=== PATIENT | female | born 1935 | race African-American/Black ===

== ENCOUNTER 2022-09-09 09:52 | Inpatient (IN) | payer MEDICARE, OTHER ==
[~2022-09-09] VITALS: Ht 157.5 cm; Wt 64.4 kg
[2022-09-09] MEDS ORDERED: CARV12.545 PO (10:34)
[2022-09-09 12:10] LABS: BASOPHILS % 0.4 % (0.0-2.0); EOSINOPHILS % 3.4 % (0.0-5.0); HEMATOCRIT. 34.5 % (36.0-48.0); HEMOGLOBIN. 10.8 g/dL (12.0-16.0); LYMPHOCYTES % 35.5 % (20.0-50.0); MEAN CORPUSCULAR HEMOGLOBIN 30.6 pg (28.0-32.0); MEAN CORPUSCULAR VOLUME 98.2 fL (81.0-99.0); MONOCYTES % 10.4 % (2.0-8.0); NEUTROPHILS % 50.3 % (40.0-76.0); PLATELET 229 x1000/uL (130-400); RED BLOOD CELL COUNT 3.52 mill/uL (4.2-5.4); RED CELL DISTRIBUTION WIDTH 16.4 % (11.6-14.6)
[2022-09-09 12:22] LABS: CHLORIDE 117 mEq/L (98-107)
[2022-09-09] MEDS ORDERED: DEXTROSE 50% WATER 50ML SYRINGE IV ONE (12:30)
[2022-09-09] MEDS ORDERED: ALBUTEROL (0.083%) 2.5MG/3ML NEB HHN ONE (12:30)
[2022-09-09] MEDS ORDERED: SODIUM POLYSTYRENE SULFONATE 15 G/60 ML BOT PO ONE (12:30)
[2022-09-09] MEDS ORDERED: INSULIN REGULAR (HUMULIN R) 300UNITS/3ML VIAL IV ONE (12:30)
[2022-09-09] MEDS ORDERED: SODIUM BICARBONATE 8.4% 1 MEQ/ML 50ML SYR IV ONE (12:30)
[2022-09-09] MEDS ORDERED: IPRATROPIUM/ALBUTEROL 0.5-3(2.5)MG/3ML NEB NEB PRN (15:45)
[2022-09-09] MEDS ORDERED: MAGNESIUM/ALUMINUM HYDROXIDE/SIMETHICONE 30ML UDC PO PRN (15:45)
[2022-09-09] MEDS ORDERED: GUAIFENESIN 200MG/10ML SUGAR FREE UDC PO PRN (15:45)
[2022-09-09] MEDS ORDERED: ACETAMINOPHEN 325MG TABLET PO PRN ×2 (15:45)
[2022-09-09] MEDS ORDERED: CLONIDINE 0.1MG TABLET PO PRN (15:45)
[2022-09-09] MEDS ORDERED: ONDANSETRON HCL 4MG/2ML INJ IV PRN (15:45)
[2022-09-09] MEDS ORDERED: DOCUSATE SODIUM 100MG CAPSULE PO PRN (15:45)
[2022-09-09] MEDS ORDERED: ZOLPIDEM TARTRATE 5MG TABLET PO PRN (15:45)
[2022-09-09] MEDS ORDERED: NITROGLYCERIN 0.4MG TABLET SL SL PRN (15:45)
[2022-09-09] MEDS ORDERED: DEXTROSE 50% WATER 50ML SYRINGE IV PRN (15:45)
[2022-09-09] MEDS: BLOOD SUGAR DIAGNOSTIC STRIP TEST SCH ×2 (17:07→21:16)
[2022-09-09] MEDS: ENOXAPARIN 30MG/0.3ML SYR SUBCUT SCH (17:18)
[2022-09-09] MEDS: INSULIN LISPRO 100 UNITS/ML SUBCUT SCH ×2 (17:18→20:37)
[2022-09-09] MEDS: AMLODIPINE 10MG TABLET PO SCH (17:18)
[2022-09-09 19:00] LABS: T4 FREE 1.16 ng/dL (0.76-1.46)
[2022-09-09 19:17] LABS: VITAMIN B12 SERUM 598 pg/mL (211-911)
[2022-09-09] MEDS: ASCORBIC ACID 500 MG TABLET PO SCH (21:18)
[2022-09-09] MEDS: FUROSEMIDE 40MG/4ML VIAL IVP SCH (21:18)
[2022-09-09 23:11] LABS: CREATINE KINASE 39 IU/L (26-192)
[2022-09-09 23:51] LABS: CLARITY URINE CLEAR (CLEAR); COLOR URINE YELLOW (YELLOW); KETONES URINE NEGATIVE (NEGATIVE); LEUKOCYTE ESTERASE URINE NEGATIVE (NEGATIVE); NITRITE URINE NEGATIVE (NEGATIVE); OCCULT BLOOD URINE NEGATIVE (NEGATIVE); PROTEIN URINE NEGATIVE (NEGATIVE); SPECIFIC GRAVITY URINE 1.007 (1.005-1.030); UROBILINOGEN URINE 0.2 E.U./dL (0.2-1.0)
[2022-09-10] VITALS (9 sets, daily range): BP systolic 114–155; BP diastolic 61–93
[2022-09-10 00:12] LABS: *AMPHETAMINES SCREEN URINE NEGATIVE (NEGATIVE); *BARBITURATES SCREEN URINE NEGATIVE (NEGATIVE); *BENZODIAZEPINES SCREEN URINE NEGATIVE (NEGATIVE); *COCAINE SCREEN URINE NEGATIVE (NEGATIVE); CANNABINOID URINE SCREEN NEGATIVE (NEGATIVE); METHADONE URINE SCREEN NEGATIVE (NEGATIVE); OPIATES URINE SCREEN NEGATIVE (NEGATIVE); PHENCYCLIDINE URINE SCREEN NEGATIVE (NEGATIVE)
[2022-09-10] MEDS: BLOOD SUGAR DIAGNOSTIC STRIP TEST SCH ×4 (07:30→21:09)
[2022-09-10] MEDS: INSULIN LISPRO 100 UNITS/ML SUBCUT SCH ×4 (08:00→21:00)
[2022-09-10] MEDS ORDERED: INFLUENZA VACCINE 05/PF 0.5 ML SYRINGE IM ONE (09:00)
[2022-09-10 09:02] LABS: BASOPHILS % 0.5 % (0.0-2.0); EOSINOPHILS % 2.6 % (0.0-5.0); HEMATOCRIT. 29.6 % (36.0-48.0); HEMOGLOBIN. 9.7 g/dL (12.0-16.0); MEAN CORPUSCULAR HEMOGLOBIN 30.9 pg (28.0-32.0); MEAN CORPUSCULAR VOLUME 93.9 fL (81.0-99.0); MEAN PLATELET VOLUME 7.6 fl (7.4-10.4); MONOCYTES % 13.6 % (2.0-8.0); NEUTROPHILS % 51.3 % (40.0-76.0); PLATELET 196 x1000/uL (130-400); RED BLOOD CELL COUNT 3.15 mill/uL (4.2-5.4); RED CELL DISTRIBUTION WIDTH 15.6 % (11.6-14.6)
[2022-09-10 09:13] LABS: CHLORIDE 113 mEq/L (98-107)
[2022-09-10 09:23] LABS: CREATINE KINASE MB FRACTION 1.1 ng/mL (0.5-3.6)
[2022-09-10] MEDS ORDERED: FLUO1POW12 MC (09:52)
[2022-09-10] MEDS ORDERED: FERR325T6 PO (09:52)
[2022-09-10] MEDS ORDERED: ATOR10TA69 PO (09:52)
[2022-09-10] MEDS ORDERED: LEVO50TA8 PO (09:52)
[2022-09-10] MEDS ORDERED: ASPI-1079 PO (09:52)
[2022-09-10] MEDS ORDERED: ALLO100T PO (09:52)
[2022-09-10] MEDS ORDERED: ESCI5SOL2 PO (09:52)
[2022-09-10] MEDS ORDERED: LOSA25TA26 PO (09:52)
[2022-09-10] MEDS: FUROSEMIDE 40MG/4ML VIAL IVP SCH ×2 (10:02→21:09)
[2022-09-10] MEDS: AMLODIPINE 10MG TABLET PO SCH (10:03)
[2022-09-10] MEDS: FAMOTIDINE 20MG TABLET PO SCH (10:03)
[2022-09-10] MEDS: ASCORBIC ACID 500 MG TABLET PO SCH ×2 (10:04→21:09)
[2022-09-10] MEDS: ASPIRIN 325MG EC TABLET PO SCH (10:04)
[2022-09-10] MEDS: ZINC SULFATE 220 MG ( 50 ) CAPSULE PO SCH (10:04)
[2022-09-10] MEDS: ENOXAPARIN 30MG/0.3ML SYR SUBCUT SCH (16:19)
[2022-09-10] MEDS: DILTIAZEM HCL 30MG TABLET PO SCH (21:09)
[2022-09-11] VITALS: BP 100/59
[2022-09-11] MEDS: DILTIAZEM HCL 30MG TABLET PO SCH ×2 (03:00→08:29)
[2022-09-11 04:00] VITALS: BP 114/63
[2022-09-11 08:00] VITALS: BP 105/56
[2022-09-11] MEDS: INSULIN LISPRO 100 UNITS/ML SUBCUT SCH ×4 (08:00→21:00)
[2022-09-11] MEDS: BLOOD SUGAR DIAGNOSTIC STRIP TEST SCH ×4 (08:27→21:32)
[2022-09-11] MEDS: ZINC SULFATE 220 MG ( 50 ) CAPSULE PO SCH (08:29)
[2022-09-11] MEDS: ASCORBIC ACID 500 MG TABLET PO SCH ×2 (08:29→21:31)
[2022-09-11] MEDS: FAMOTIDINE 20MG TABLET PO SCH (08:29)
[2022-09-11] MEDS: ASPIRIN 325MG EC TABLET PO SCH (08:29)
[2022-09-11] MEDS: AMLODIPINE 10MG TABLET PO SCH (08:30)
[2022-09-11] MEDS: FUROSEMIDE 40MG/4ML VIAL IVP SCH ×2 (08:30→21:00)
[2022-09-11] MEDS ORDERED: METOPROLOL TARTRATE 50MG TABLET PO SCH (11:15)
[2022-09-11] MEDS ORDERED: METOPROLOL TARTRATE 5MG/5ML VIAL IV PRN (11:15)
[2022-09-11 12:00] VITALS: BP 118/65
[2022-09-11 16:00] VITALS: BP 108/56
[2022-09-11] MEDS: ENOXAPARIN 30MG/0.3ML SYR SUBCUT SCH (16:57)
[2022-09-11 20:00] VITALS: BP 107/57
[2022-09-11] MEDS: METOPROLOL TARTRATE 25MG TABLET PO SCH (21:00)
[2022-09-12] VITALS (7 sets, daily range): BP systolic 100–131; BP diastolic 49–65
[2022-09-12] MEDS: BLOOD SUGAR DIAGNOSTIC STRIP TEST SCH ×4 (07:30→21:23)
[2022-09-12 07:59] LABS: BASOPHILS % 0.5 % (0.0-2.0); EOSINOPHILS % 1.5 % (0.0-5.0); HEMATOCRIT. 35.2 % (36.0-48.0); LYMPHOCYTES % 38.8 % (20.0-50.0); MEAN CORPUSCULAR VOLUME 94.7 fL (81.0-99.0); MEAN PLATELET VOLUME 7.6 fl (7.4-10.4); MONOCYTES % 11.6 % (2.0-8.0); NEUTROPHILS % 47.6 % (40.0-76.0); PLATELET 226 x1000/uL (130-400); RED BLOOD CELL COUNT 3.72 mill/uL (4.2-5.4); RED CELL DISTRIBUTION WIDTH 15.6 % (11.6-14.6)
[2022-09-12] MEDS: INSULIN LISPRO 100 UNITS/ML SUBCUT SCH ×4 (08:00→21:00)
[2022-09-12 08:16] LABS: HEMOGLOBIN. 11.2 g/dL (12.0-16.0)
[2022-09-12 08:22] LABS: CHLORIDE 107 mEq/L (98-107)
[2022-09-12 08:36] LABS: PHOSPHORUS 4.6 mg/dL (2.5-4.9)
[2022-09-12] MEDS: METOPROLOL TARTRATE 25MG TABLET PO SCH ×2 (09:00→21:23)
[2022-09-12] MEDS: AMLODIPINE 10MG TABLET PO SCH (09:00)
[2022-09-12] MEDS: FUROSEMIDE 40MG/4ML VIAL IVP SCH (10:36)
[2022-09-12] MEDS: ZINC SULFATE 220 MG ( 50 ) CAPSULE PO SCH (10:38)
[2022-09-12] MEDS: FAMOTIDINE 20MG TABLET PO SCH (10:38)
[2022-09-12] MEDS: ASPIRIN 81MG EC TABLET PO SCH (10:38)
[2022-09-12] MEDS: ASCORBIC ACID 500 MG TABLET PO SCH ×2 (10:38→21:21)
[2022-09-12] MEDS ORDERED: MAGNESIUM 2 G PREMIX 50 ML IV NR (19:00)
[2022-09-12] MEDS: CEPHALEXIN 250MG CAPSULE PO SCH (20:24)
[2022-09-12] MEDS: ENOXAPARIN 30MG/0.3ML SYR SUBCUT SCH (20:24)
[2022-09-13] VITALS (7 sets, daily range): BP systolic 91–103; BP diastolic 48–59
[2022-09-13] MEDS: CEPHALEXIN 250MG CAPSULE PO SCH ×4 (00:15→19:43)
[2022-09-13] MEDS: BLOOD SUGAR DIAGNOSTIC STRIP TEST SCH ×4 (07:30→21:50)
[2022-09-13] MEDS: INSULIN LISPRO 100 UNITS/ML SUBCUT SCH ×4 (08:00→21:00)
[2022-09-13 08:03] LABS: BASOPHILS % 0.4 % (0.0-2.0); HEMATOCRIT. 33.8 % (36.0-48.0); HEMOGLOBIN. 10.8 g/dL (12.0-16.0); LYMPHOCYTES % 33.5 % (20.0-50.0); MEAN CORPUSCULAR HEMOGLOBIN 30.3 pg (28.0-32.0); MEAN CORPUSCULAR VOLUME 94.6 fL (81.0-99.0); MEAN PLATELET VOLUME 7.9 fl (7.4-10.4); MONOCYTES % 11.6 % (2.0-8.0); NEUTROPHILS % 52.5 % (40.0-76.0); PLATELET 237 x1000/uL (130-400); RED BLOOD CELL COUNT 3.57 mill/uL (4.2-5.4); RED CELL DISTRIBUTION WIDTH 15.3 % (11.6-14.6)
[2022-09-13 08:49] LABS: CHLORIDE 106 mEq/L (98-107)
[2022-09-13 08:56] LABS: PHOSPHORUS 4.8 mg/dL (2.5-4.9)
[2022-09-13] MEDS ORDERED: FUROSEMIDE 40MG/4ML VIAL IVP SCH (09:00)
[2022-09-13] MEDS: METOPROLOL TARTRATE 25MG TABLET PO SCH (09:00)
[2022-09-13] MEDS: ZINC SULFATE 220 MG ( 50 ) CAPSULE PO SCH (09:31)
[2022-09-13] MEDS: FAMOTIDINE 20MG TABLET PO SCH (09:32)
[2022-09-13] MEDS: ASCORBIC ACID 500 MG TABLET PO SCH ×2 (09:33→21:50)
[2022-09-13] MEDS: ASPIRIN 81MG EC TABLET PO SCH (09:34)
[2022-09-13] MEDS ORDERED: LEVOFLOXACIN 250MG PREMIX 50 ML IV SCH (10:00)
[2022-09-13] MEDS: ENOXAPARIN 30MG/0.3ML SYR SUBCUT SCH (19:44)
[2022-09-14] VITALS (8 sets, daily range): BP systolic 91–101; BP diastolic 50–57
[2022-09-14] MEDS: CEPHALEXIN 250MG CAPSULE PO SCH ×3 (00:26→12:34)
[2022-09-14 07:17] LABS: BASOPHILS % 0.2 % (0.0-2.0); EOSINOPHILS % 2.5 % (0.0-5.0); HEMATOCRIT. 32.1 % (36.0-48.0); HEMOGLOBIN. 10.7 g/dL (12.0-16.0); LYMPHOCYTES % 34.5 % (20.0-50.0); MEAN CORPUSCULAR VOLUME 93.3 fL (81.0-99.0); MEAN PLATELET VOLUME 8.1 fl (7.4-10.4); MONOCYTES % 12.7 % (2.0-8.0); NEUTROPHILS % 50.1 % (40.0-76.0); PLATELET 235 x1000/uL (130-400); RED BLOOD CELL COUNT 3.45 mill/uL (4.2-5.4); RED CELL DISTRIBUTION WIDTH 14.9 % (11.6-14.6)
[2022-09-14] MEDS: BLOOD SUGAR DIAGNOSTIC STRIP TEST SCH ×2 (07:30→12:35)
[2022-09-14] MEDS: INSULIN LISPRO 100 UNITS/ML SUBCUT SCH ×2 (08:00→12:35)
[2022-09-14 08:49] LABS: PHOSPHORUS 4.8 mg/dL (2.5-4.9)
[2022-09-14] MEDS: ZINC SULFATE 220 MG ( 50 ) CAPSULE PO SCH (10:17)
[2022-09-14] MEDS: FAMOTIDINE 20MG TABLET PO SCH (10:17)
[2022-09-14] MEDS: ASPIRIN 81MG EC TABLET PO SCH (10:17)
[2022-09-14] MEDS: ASCORBIC ACID 500 MG TABLET PO SCH (10:17)
[2022-09-14] MEDS ORDERED: SODIUM POLYSTYRENE SULFONATE 15 G/60 ML BOT PO NR (10:45)
[2022-09-14] MEDS ORDERED: CEPH250T MT (11:10)
== END 2022-09-14 15:40 | disposition home health service (06) | DRG 291 ==
LOC: ER 09:52 → EDBEDREQTM 13:49 → EDBEDREQ 13:49 → SUPCPDRO 15:37 → 5EST 22:28
PROVIDERS: ADMIT Internal Medicine; ATTEND Internal Medicine
DX: I13.0 Hypertensive heart and chronic kidney disease with heart failure and stage 1 through stage 4 chronic kidney disease, or unspecified chronic kidney disease (principal); E43 Unspecified severe protein-calorie malnutrition; I50.23 Acute on chronic systolic (congestive) heart failure; N17.0 Acute kidney failure with tubular necrosis; N13.8 Other obstructive and reflux uropathy; D63.8 Anemia in other chronic diseases classified elsewhere; E11.22 Type 2 diabetes mellitus with diabetic chronic kidney disease; E87.5 Hyperkalemia; N30.90 Cystitis, unspecified without hematuria; E78.5 Hyperlipidemia, unspecified; E83.42 Hypomagnesemia; N18.2 Chronic kidney disease, stage 2 (mild); Z79.4 Long term (current) use of insulin; Z82.49 Family history of ischemic heart disease and other diseases of the circulatory system; Z83.3 Family history of diabetes mellitus; Z68.26 Body mass index [BMI] 26.0-26.9, adult
CPT/HCPCS: 36415; 71045; 74176; 76770; 80048; 80053; 80061; 80305; 81003; 82550; 82553; 82607; 82746; 82962; 83036; 83540; 83550; 83605; 83735; 83880; 84100; 84145; 84439; 84443; 84484; 85025; 87015; 87045; 87077; 87186; 87427; 87449; 87493; 89055; 90686; 93005; 93306; 93970; 97162; 97166; 99291; J1650; J1815; J1940; J1956; J3475; J3490; A4315